=== PATIENT | female | born 1990 | race Caucasian/White ===

== ENCOUNTER 2017-04-13 18:10 | Emergency (ER) | payer MEDICAID ==
[2017-04-13] VITALS (13 sets, daily range): BP systolic 115–153; BP diastolic 70–104; PULSE 92–117; RESP 19
[~2017-04-13] VITALS: Ht 152.4 cm; Wt 100.7 kg
[~2017-04-13 18:10] MED LIST: PREN0.01 PO
--- NOTE | 2017-04-13 18:51 | PD ---
HPI Chief Complaint high blood pressure Date Seen: Apr 13, 2017 Time Seen: 18:30 (Yo Ackerman MD R1) Travel History International Travel<30 Days: No Contact w/Intl Traveler<30Days: No Known Affected Area: No (Yo Ackerman MD) History of Present Illness HPI 27 YO A1 at 37 weeks presents with a one time elevated BP measurement at work this morning of 160/100. Pt has had appropriate PNC thus far without complications. First was induced around 39 weeks due to HTN of . Mother had a hx of HELLP. Pt denies CP, blurry vision, SOB, swelling , urinary problems, and N/D; however, endorses occasional DOWNEY and emesis. Para: 1 : 3 Miscarriage: 1 (Yo Ackerman MD) History Past Medical History Medical History: Denies Significant Hx (Yo Ackerman MD) Past Surgical History Surgical History: No Previous Surgery (Yo Ackerman MD) Family History Narrative Family History Father with DM and HTN Mother with HELLP syndrome during (Yo Ackerman MD) Social History Alcohol Use: No Tobacco Use: No Substance Abuse: No (Yo Ackerman MD) Allergies-Medications (Allergen,Severity, Reaction): Coded Allergies: No Known Allergies (Unverified , 04/13/17) Home Meds Reported Medications Multivit/Min/Fol Ac/Iron/Pren ( Vit ( Plus)) Tab1 Tab PO DAILY #30 10/15/11 Review of Systems General / Constitutional: No: Fever, Chills, Other Eyes: No: Diploplia, Blurred Vision, Visual changes, Pain, Photophobia HENT: Headaches (occasional DOWNEY) Cardiovascular: No: Irregular Rhythm, Chest Pain or Discomfort, Palpitations, Tachycardia, Syncope, Varicosities, Edema, Cyanosis, Other Respiratory: No: Cough, Short of Breath, Wheezing, Other Gastrointestinal: Vomiting (1x per week), No: Nausea, Diarrhea, Abdominal Pain (Yo Ackerman MD R1) Physical Exam Narrative GENERAL: Well-nourished, well-developed patient. SKIN: Warm and dry. HEAD: Normocephalic and atraumatic. EYES: No scleral icterus. No injection or drainage. ENT: No nasal drainage noted. Mucous membranes pink. Airway patent. NECK: Supple, trachea midline. No JVD. CARDIOVASCULAR: Regular rate and rhythm without murmurs, gallops, or rubs. RESPIRATORY: Breath sounds equal bilaterally. No accessory muscle use. BREASTS: Bilateral exam showed no masses , no retractions, no nipple discharge. ABDOMEN/GI: Abdomen soft, non-tender, bowel sounds present, no rebound, no guarding Gravid to [-] weeks size Fundal Height: [-] GENITOURINARY: External Genitalia: intact and normal in appearance BUS glands: [-] Cervix: [-] Dilatation: [-] Effacement: [-] Station: [-] Presentation: [-] Membranes: [intact or ruptured] Uterine Contractions: [-] FHT's: Category: [-] Baseline: [-] Reactive: [-] Variability: [-] Decels: [-] EXTREMITIES: No cyanosis or edema. BACK: Nontender without obvious deformity. No CVA tenderness. NEUROLOGICAL: Awake and alert. Motor and sensory grossly within normal limits. Five out of 5 muscle strength in all muscle groups. Normal speech. (Yo Ackerman MD R1) /153/95, 145/99, 137/104 (sitting up with arm bent), 147/101 (repeat with arm bent), 117/72, 121/78, 116/74, 125/78, 120/70 Narrative cervix 10/27/-3, ceph (Jonathan Abdi MD) Data Data Vital Signs Reviewed: Yes Labs Laboratory Tests Test 04/13/17 18:30 White Blood Count 14.5 TH/MM3 Red Blood Count 4.66 MIL/MM3 Hemoglobin 12.2 GM/DL Hematocrit 36.6 % Mean Corpuscular Volume 78.5 FL Mean Corpuscular Hemoglobin 26.2 PG Mean Corpuscular Hemoglobin 33.4 % Concent Red Cell Distribution Width 16.5 % Platelet Count 289 TH/MM3 Mean Platelet Volume 8.5 FL Urine Color YELLOW Urine Turbidity HAZY Urine pH 7.0 Urine Specific [place] 1.013 Urine Protein TRACE mg/dL Urine Glucose (UA) NEG mg/dL Urine Ketones NEG mg/dL Urine Occult Blood NEG Urine Nitrite NEG Urine Bilirubin NEG Urine Urobilinogen LESS THAN 2.0 MG/DL Urine Leukocyte Esterase LARGE Urine RBC LESS THAN 1 /hpf Urine WBC 3 /hpf Urine Squamous Epithelial 5 /hpf Cells Urine Amorphous Sediment FEW Urine Bacteria MOD /hpf Urine Mucus FEW /lpf Microscopic Urinalysis Comment CULTURE INDICATED Urine Random Creatinine 68 MG/DL Urine Random Total Protein 18 MG/DL Urine Protein/Creatinine Ratio 0.26 Sodium Level 137 MEQ/L Potassium Level 3.9 MEQ/L Chloride Level 103 MEQ/L Carbon Dioxide Level 24.5 MEQ/L Anion Gap 10 MEQ/L Blood Urea Nitrogen 8 MG/DL Creatinine 0.60 MG/DL Estimat Glomerular Filtration 120 ML/MIN Rate Random Glucose 76 MG/DL Uric Acid 4.1 MG/DL Calcium Level 9.7 MG/DL Total Bilirubin 0.2 MG/DL Aspartate Amino Transf 13 U/L (AST/SGOT) Alanine Aminotransferase 12 U/L (ALT/SGPT) Alkaline Phosphatase 102 U/L Total Protein 7.7 GM/DL Albumin 2.8 GM/DL (Jonathan Abdi MD) MDM Plan 27 y/o with IUP at 37 wks with elevated blood pressure initial blood pressures elevated but subsequent pressures wnl pt with no symptoms of preeclampsia labs wnl, protein/cr ratio elevated/intermediate will have patient complete 24 hr urine outpt labor precautions and s/sx pre-e reviewed (Jonathan Abdi MD) Diagnosis Diagnosis: Primary Impression: Gestational [-induced] hypertension without significant proteinuria, third trimester Additional Impression: 37 weeks gestation of Disposition: 01 DISCHARGE HOME Condition: Stable Scripts Cephalexin (Keflex)500 Mg [id number] Mg PO Q6H #28 CAP Ref 0 Prov:Jonathan Abdi MD 04/13/17 Patient Instructions: 24 Hour Urine Collection (GEN), General Instructions, Early Labor Signs (ED) Yo Ackerman MD R1 Apr 13, 2017 18:51 Jonathan Abdi MD Apr 13, 2017 20:22
[2017-04-13 19:13] LABS: HEMATOCRIT 36.6 % (35.0-46.0); MEAN CELL VOLUME 78.5 FL (80.0-100.0); MEAN CORPUSCULAR HEMOGLOBIN 26.2 PG (27.0-34.0); MEAN CORPUSCULAR HGB CONC 33.4 % (32.0-36.0); PLATELET COUNT 289 TH/MM3 (150-450); RED BLOOD COUNT 4.66 MIL/MM3 (4.00-5.30); RED CELL DISTRIBUTION WIDTH 16.5 % (11.6-17.2); REVIEW FLAG FINAL; WHITE BLOOD COUNT 14.5 TH/MM3 (4.0-11.0)
[2017-04-13 19:29] LABS: BACTERIA, URINE MOD /hpf; BLOOD, URINE NEG (NEG); COMMENT (UR) CULTURE INDICATED; CULTURE IF INDICATED CULTURE INDICATED; GLUCOSE,URINE NEG (NEG); KETONE, URINE NEG (NEG); MUCUS URINE FEW /lpf (OCC); NITRITE,URINE NEG (NEG); SQUAMOUS EPITHELIAL CELL URINE 5 /hpf (0-5); URINE COLOR YELLOW (YELLW/STRAW)
[2017-04-13 19:32] LABS: ANION GAP 10 MEQ/L (5-15); AST (GOT) 13 U/L (15-37); BICARBONATE 24.5 MEQ/L (21.0-32.0); BLOOD UREA NITROGEN 8 MG/DL (7-18); CHLORIDE 103 MEQ/L (98-107); GLOMERULAR FILTRATION RATE 120 ML/MIN (>89); POTASSIUM 3.9 MEQ/L (3.5-5.1); SODIUM (NA) 137 MEQ/L (136-145); URIC ACID 4.1 MG/DL (2.6-6.0)
[2017-04-13 19:33] LABS: ALT (GPT) 12 U/L (10-53)
[2017-04-13 19:35] LABS: ALKALINE PHOSPHATASE 102 U/L (45-117); TOTAL BILIRUBIN ADULT 0.2 MG/DL (0.2-1.0)
[2017-04-13] MEDS ORDERED: CEPH-460 PO (20:25)
== END 2017-04-13 20:46 | disposition home or self-care (01) ==
LOC: HOBED 18:10
DX: O16.3 Unspecified maternal hypertension, third trimester (principal); Z3A.37 37 weeks gestation of pregnancy
CPT/HCPCS: 36415; 59025; 80053; 81001; 82570; 84156; 84550; 85027; 87086

== ENCOUNTER → 2017-04-15 | Outpatient (CLI) | payer MEDICAID ==
[~2017-04-15] MED LIST changes: +CEPH-460 PO
== END ==
LOC: HLAB 19:48
DX: Z00.00 Encounter for general adult medical examination without abnormal findings (principal)